=== PATIENT | female | born 1995 | race Caucasian/White ===

== ENCOUNTER 2023-07-14 09:06 | Emergency (ER) | payer BC, SELFPAY ==
[2023-07-14 09:12] VITALS: BP 112/57; PULSE 90; RESP 18; TEMP 36.2; O2SAT 100; BMI 20.9
--- NOTE | 2023-07-14 09:33 | ED.RECABL ---
HPI - Recheck/Abnormal Lab/Rx General Chief Complaint: Recheck/Abnormal Lab/Rx Stated Complaint: wants to confirm Time Seen by Provider: 07/14/23 09:33 Source: patient Mode of arrival: Ambulatory History of Present Illness HPI narrative: Patient here only for testing. Patient did test urine positive . She is now . LMP June 04, 2023. She suspected she was because she just missed her period. Patient did have some nausea. But no urinary complaints. No vomiting no diarrhea. No cough cold congestion fever chills. This was an unexpected surprise.. She is happy with the results. She took 5 tests at home and they were all positive. Related Data Home Medications Medication Instructions Recorded Confirmed [id number] 400 mcg-om3 35 mg-dha 25 tab PO 07/22/23 07/22/23 mg-epa 5 mg-fish oil chewable tablet ferrous sulfate, dried 159 mg (45 159 mg PO DAILY 07/22/23 07/22/23 mg iron) tablet,extended release (iron ER) melatonin 5 mg tablet 5 mg PO BEDTIME PRN 07/22/23 07/22/23 Allergies Allergy/AdvReac Type Severity Reaction Status Date / Time Yeast AdvReac Abdominal Verified 07/22/23 12:03 Pain vinegar AdvReac Abdominal Uncoded 07/22/23 12:03 Pain Review of Systems Review of Systems Narrative: GENERAL: negative chills, fatigue, malaise, fever, sweats. HEENT: negative sinus pain, ear pain, sore throat RESPIRATORY: negative dyspnea, cough CARDIOVASCULAR: negative chest pain, palpitations GASTROINTESTINAL: Positive nausea, negative vomiting, abdominal pain : negative dysuria, frequency, hematuria MUSCULOSKELETAL: negative muscle or bony pain SKIN: negative rash, skin lesions NEUROLOGIC: negative weakness, numbness ROS Unobtainable: All systems reviewed & are unremarkable except as noted in HPI and below Patient History Medical History (Updated 07/22/23 @ 13:12 by Alicia Gustafson RN) Migraine without aura Surgical History (Updated 07/22/23 @ 12:10 by Alicia Gustafson, LILI) History of breast augmentation (~01/2023) Family History (Updated 07/22/23 @ 12:13 by Alicia Gustafson RN) Father Hypertension Heart murmur Grandmother Diabetes mellitus Grandmother Angina at rest Grandfather Parkinsons disease Family/Other Type 1 diabetes Uncle A-fib Mother Skin cancer Social History marital status: unmarried,living together household members: significant other and children (S/O's daughter every other weekend) lives independently: Yes caregiver/support person: No housing: house pets and animals: Yes (cat & dogs, aware of precautions) education level: college (some college) occupational status: employed current occupational exposures/hazards: No special hardeep needs: No travel history: recent (domestic only) seatbelt use: always helmet use: Yes water heater temp set < 120 deg: Yes working smoke detector in home: Yes fire extinguisher in home: Yes carbon monox detector in home: Yes firearms in home: Yes firearms unloaded and locked: Yes do you feel safe at home: Yes Smoking Status: Former smoker (quit vaping when she learned she was , likewise w/ MJ) second hand exposure: No (s/o chews) alcohol intake: former (0-2/week when not ) substance use type: marijuana (agrees not to use while /) during the past year weight has: remained stable well-balanced diet: rarely or never daily servings fruits/ve-4 (1-2) caffeine: Yes (1 cup coffee or tea in AM) Type(s) of exercise: walking and weight lifting Smoking Status: Never smoker alcohol intake frequency: 0-2 drinks per day Substance Use Type: does not use Exam Narrative Exam Narrative: GENERAL: in no distress, not toxic not dyspneic HEAD: Normocephalic. EYES: Pupils equal round ENT: Mucous membranes moist. NECK: Trachea midline. CARDIOVASCULAR: Regular rate and rhythm RESPIRATORY: Clear to auscultation. Breath sounds equal bilaterally. No wheezes, rales, or rhonchi. GASTROINTESTINAL: Abdomen soft, non-tender EXTREMITIES: No gross deformities. BACK: No flank tenderness. NEURO: AOx4. SKIN: Warm and dry PSYCH: Not anxious, is cooperative Initial Vital Signs Initial Vital Signs: Vital Signs Temperature 97.2 F L 07/14/23 09:12 Pulse Rate 90 07/14/23 09:12 Respiratory Rate 18 07/14/23 09:12 Blood Pressure 112/57 L 07/14/23 09:12 Pulse Oximetry 100 07/14/23 09:12 Oxygen Delivery Method Room Air 07/14/23 09:12 Course Orders Ordered: ED Orders 07/14/23 09:18 Test Urine Stat Vital Signs Vital signs: Vital Signs - 8 hr 07/14/23 09:12 Temperature 97.2 F L Pulse Rate 90 Respiratory Rate 18 Blood Pressure 112/57 L Pulse Oximetry 100 Oxygen Delivery Method Room Air MDM - Recheck/Abnormal Lab/Rx Lab Data Labs: Point of Care Testing Test Results Positive MDM Narrative Medical decision making narrative: Patient here only for testing. Patient did test urine positive . She is now . LMP June 04, 2023. She suspected she was because she just missed her period. Patient did have some nausea. But no urinary complaints. No vomiting no diarrhea. No cough cold congestion fever chills. This was an unexpected surprise.. She is happy with the results. She took 5 tests at home and they were all positive. After history and exam urine test MDM CC: Here for test Complicating co-morbidities: She missed her last period Data collected from: Patient Differential considered: Includes but not limited to Exam documented above, pertinent findings include: Nontender abdomen Lab Test results independently reviewed as above. Pertinent findings: Urine positive Re-evaluations: Reviewed results with patient. She is very elated that she is . She states her boyfriend will be very happy. She is already on vitamins. She suspected she was . Denies abdominal pain vaginal bleeding or leak. No urinary complaints. No imaging or blood work indicated. She agrees. Discussion: Reviewed results with patient. She is happy that she is . No other laboratory studies imaging indicated. She is only here for test. No other complaints. Diagnosis: Positive Discharge Plan Departure Patient Disposition: Home Clinical Impression: Encounter for test, result positive Instructions: Exams, Tests, and Procedures, Screenings Activity Restrictions/Additional Instructions: Congratulations your test is positive! Please call provided OBGYN office on Saturday as tomorrow is a holiday, to attain and start care. Please do continue your vitamins. Keep well hydrated. Return if worse if any questions or concerns. Prescriptions: No Action [id number] oil 400 mcg-35 mg -25 mg-5 mg tablet,chewable PO melatonin 5 mg tablet 5 mg PO BEDTIME PRN iron 159 mg (45 mg iron) tablet extended release 159 mg PO DAILY Referrals: Bala James MD [Physician] - Stand Alone Forms: Patient Portal/API
== END 2023-07-14 09:40 | disposition home or self-care (01) ==
PROVIDERS: Emergency Provider Emergency Medicine
DX: Z32.01 Encounter for pregnancy test, result positive (principal)
CPT/HCPCS: 81025; 99281; 99282

== ENCOUNTER → 2023-08-02 07:45 | Outpatient (CLI) | payer OTHER, SELFPAY ==
--- NOTE | 2023-08-02 07:46 | DI.US.S_ITS ---
PROCEDURE: US OB <= 14 WEEKS FETUS INDICATIONS: DATING OUTSIDE/PRIOR DATING DATA: Last menstrual period (LMP): 06/04/2023. LMP-based estimated date of delivery (JAKE): 03/10/2024. First dating scan (date and location): 08/02/2023. Estimated date of delivery (JAKE) from first dating scan: 03/21/2024. The calculations are made using the working JAKE of 03/21/2024. TECHNIQUE: Real-time scanning was performed of the fetus and maternal pelvic organs, with image documentation. Endovaginal scanning was also performed to better visualize the fetus and maternal ovaries. COMPARISON: None. FINDINGS: Embryo: [place]-rump length measures 9 cm, corresponding with 6 week 6 day gestation. Yolk sac is noted. EGA by dates 8 week 3 day Heart rate: 119 beats per minute Maternal organs: Ovaries left ovarian corpus luteum cyst. IMPRESSION: Single live intrauterine corresponds with 6 week 6 day gestation by ultrasound. EGA by dates 8 week 3 day. Approved by: Randal Sebastian M.D. on 08/02/2023 at 15:13
== END ==
LOC: US 07:46
PROVIDERS: PCP Family Medicine; Referring Provider Family Medicine; Visit Provider Family Medicine
DX: Z34.01 Encounter for supervision of normal first pregnancy, first trimester (principal); Z3A.01 Less than 8 weeks gestation of pregnancy
CPT/HCPCS: 76801; 76817

== ENCOUNTER → 2023-08-19 08:50 | Outpatient (CLI) | payer OTHER, SELFPAY ==
[2023-08-19 09:54] LABS: Appearance Urine UA SL CLOUDY; Bilirubin Urine UA NEGATIVE (NEGATIVE); Color Urine UA YELLOW; Glucose Urine UA NEGATIVE (Negative); Ketones Urine UA NEGATIVE (NEGATIVE); Leukocyte Esterase Urine UA NEGATIVE (NEGATIVE); Nitrite Urine UA NEGATIVE (Negative); Occult Blood Urine UA NEGATIVE (Negative); Protein Urine UA NEGATIVE (Negative); Specific Gravity Urine UA 1.015 (1.000-1.035); Urobilinogen Urine UA 0.2 E.U./dL (0.2)
[2023-08-19 09:56] LABS: pH Urine UA 7.5 (4.5-8.0)
[2023-08-19 09:57] LABS: Add Manual Diff / Slide Review NO; Basophils Absolute Auto 0 /uL (0-100); Basophils Percent Auto 0.9 % (0-2); Eosinophils Absolute Auto 100 /uL (0-450); Hemoglobin 13.1 g/dL (12.0-16.0); Lymphocytes Absolute Auto 1800 /uL (1100-4500); Lymphocytes Percent Auto 30.3 % (25-40); Mean Corpuscular HGB Conc 34.6 % (30-36); Mean Corpuscular Hemoglobin 31.5 PG (26-34); Mean Corpuscular Volume 90.9 fL (80-100); Monocytes Absolute Auto 500 /uL (0-900); Monocytes Percent Auto 9.3 % (3-14); Neutrophils Absolute Auto 3400 /uL (1500-7000); Neutrophils Percent Auto 58.5 % (50-75); Platelet Count 252 X10^3/uL (150-400); Red Blood Cell Count 4.18 X10^6/uL (4.0-5.2); Red Cell Distribution Width 13.1 % (11.6-14.8); White Blood Cell Count 5.8 X10^3/uL (4.5-11.0)
[2023-08-19 16:21] LABS: Hepatitis B Surface Antigen NEGATIVE s/c (NEGATIVE); Rubella Antibody IgG 40.2 IU/mL (>15)
[2023-08-19 16:33] LABS: HIV 1 & 2 Ab/Ag 4th Gen Combo NEGATIVE (NEGATIVE); Hep C Virus Ab w/Reflex Quant NEGATIVE s/c (NEGATIVE)
[2023-08-20 09:28] LABS: RPR Screen Non Reactive (Non Reactive)
[2023-08-20 12:48] LABS: Varicella IgG Antibody 2554 index (Immune >165)
== END ==
PROVIDERS: PCP Family Medicine; Referring Provider Family Medicine; Visit Provider Family Medicine
DX: Z34.00 Encounter for supervision of normal first pregnancy, unspecified trimester (principal)
CPT/HCPCS: 36415; 80055; 81003; 86787; 86803; 86850; 86900; 86901; 87086; 87389

== ENCOUNTER → 2023-09-06 10:03 | Outpatient (CLI) | payer OTHER, SELFPAY ==
[2023-09-06 13:31] LABS: Urine Chlamydia NOT DETECTED; Urine N gonorrhoeae NOT DETECTED
== END ==
PROVIDERS: PCP Family Medicine; Referring Provider Family Medicine; Visit Provider Family Medicine
DX: Z34.01 Encounter for supervision of normal first pregnancy, first trimester (principal)
CPT/HCPCS: 36415; 87491; 87591

== ENCOUNTER 2023-09-18 11:43 | Emergency (ER) | payer OTHER, MEDICAID, SELFPAY ==
[2023-09-18] VITALS (7 sets, daily range): BP systolic 100–125; BP diastolic 55–68; PULSE 62–90; RESP 18–28; TEMP 36.9; O2SAT 97–100; BMI 24.1
[2023-09-18 13:14] LABS: Adenovirus Not Detected (Not Detect); B. parapertussis Not Detected (Not Detecte); Bordetella pertussis Not Detected (Not Detect); Chlamydophila pneumoniae Not Detected (Not Detect); Coronavirus 229E Not Detected (Not Detect); Coronavirus HKU1 Not Detected (Not Detect); Coronavirus NL 63 Not Detected (Not Detect); Coronavirus OC43 Not Detected (Not Detect); Human Metapneumovirus Not Detected (Not Detect); Human Rhinovirus/Enterovirus Not Detected (Not Detect); Influenza A Not Detected (Not Detect); Influenza B Not Detected (Not Detect); Mycoplasma pneumoniae Not Detected (Not Detect); Parainfluenza Virus 1 Not Detected (Not Detect); Parainfluenza Virus 2 Not Detected (Not Detect); Parainfluenza Virus 3 Not Detected (Not Detect); Parainfluenza Virus 4 Not Detected (Not Detect); Respiratory Syncytial Virus Not Detected (Not Detect); SARS- CoV-2 Not Detected (Not Detecte)
[2023-09-18] MEDS: ACETAMINOPHEN 325 MG TABLET 650 MG PO (13:18)
[2023-09-18] MEDS: SODIUM CHLORIDE 0.9% 1,000 ML 1000 ML IV (13:19)
[2023-09-18 13:21] LABS: Add Manual Diff / Slide Review NO; Basophils Absolute Auto 0 /uL (0-100); Basophils Percent Auto 0.4 % (0-2); Eosinophils Absolute Auto 0 /uL (0-450); Eosinophils Percent Auto 0.3 % (2-4); Hematocrit 36.7 % (36-46); Hemoglobin 12.9 g/dL (12.0-16.0); Lymphocytes Absolute Auto 1000 /uL (1100-4500); Lymphocytes Percent Auto 11.4 % (25-40); Mean Corpuscular HGB Conc 35.1 % (30-36); Mean Corpuscular Hemoglobin 32.4 PG (26-34); Mean Corpuscular Volume 92.4 fL (80-100); Monocytes Absolute Auto 600 /uL (0-900); Monocytes Percent Auto 6.8 % (3-14); Neutrophils Absolute Auto 7400 /uL (1500-7000); Neutrophils Percent Auto 81.1 % (50-75); Platelet Count 251 X10^3/uL (150-400); Red Blood Cell Count 3.98 X10^6/uL (4.0-5.2); Red Cell Distribution Width 12.8 % (11.6-14.8); White Blood Cell Count 9.1 X10^3/uL (4.5-11.0)
--- NOTE | 2023-09-18 13:30 | ED.DIZZY ---
HPI - Dizziness General Chief Complaint: Dizziness Stated Complaint: loss vision, sweats, sent by pcp Time Seen by Provider: 09/18/23 12:46 Source: patient Mode of arrival: Ambulatory History of Present Illness HPI Narrative: Patient here with boyfriend. Patient is 13 weeks . Patient is , has history of migraine headaches and SVT. Patient states she had episode at the [facility] this morning standing in line, prior to arrival to the [facility] she did have a cake pop. While in line she felt dizzy nauseous palpitations and sweaty. She states for brief moment less than 1 minute she could not see, workers placed her in a chair gave her orange juice and her symptoms resolved. Her father picked her up and she did have slight headache. She is feeling much better now. Patient has established OB care already. Denies any pelvic pain vaginal bleeding or vaginal discharge. Patient in no distress at this time. No history of diabetes or hypoglycemia Related Data Home Medications Medication Instructions Recorded Confirmed ferrous sulfate, dried 159 mg (45 159 mg PO DAILY 07/22/23 09/16/23 mg iron) tablet,extended release (iron ER) melatonin 5 mg tablet 5 mg PO BEDTIME PRN 07/22/23 09/16/23 Previous Rx's Medication Instructions Recorded ondansetron 4 mg disintegrating 4 mg PO Q8H PRN nausea and 08/19/23 tablet vomiting #30 tabs pyridoxine (vitamin B6) 50 mg 25 mg (1/2 x 50 mg) PO BID #30 tabs 09/02/23 tablet escitalopram oxalate 10 mg tablet 10 mg PO DAILY #30 tabs 09/16/23 (Lexapro) magnesium oxide 400 mg (241.3 mg 400 mg PO DAILY #60 tabs 09/16/23 magnesium) tablet Allergies Allergy/AdvReac Type Severity Reaction Status Date / Time Yeast AdvReac Abdominal Verified 09/16/23 08:06 Pain vinegar AdvReac Abdominal Uncoded 09/16/23 08:06 Pain Review of Systems Review of Systems Narrative: GENERAL: negative chills, fatigue, malaise, fever, positive sweats. HEENT: negative sinus pain, ear pain, sore throat positive vision changes RESPIRATORY: negative dyspnea, cough CARDIOVASCULAR: negative chest pain, positive palpitations GASTROINTESTINAL: Positive nausea, negative vomiting, abdominal pain : negative dysuria, frequency, hematuria MUSCULOSKELETAL: negative muscle or bony pain SKIN: negative rash, skin lesions NEUROLOGIC: negative weakness, numbness, positive dizziness ROS Unobtainable: All systems reviewed & are unremarkable except as noted in HPI and below Patient History Medical History Allergies Headache Fractures (~1999) Frequent UTI (~2010) Cardiac arrhythmia (~2012) Cardiac murmur (~2012) SVT (supraventricular tachycardia) (~2013) Migraine without aura Surgical History Anesthesia History of breast augmentation (~01/2023) Family History Father Hypertension Heart murmur Grandmother Diabetes mellitus Stroke Grandmother Angina at rest Grandfather Parkinsons disease Family/Other Type 1 diabetes Uncle A-fib Mother Skin cancer Social History marital status: unmarried,living together household members: significant other and children (S/O's daughter every other weekend) lives independently: Yes caregiver/support person: No housing: house pets and animals: Yes (cat & dogs, aware of precautions) education level: college (some college) occupational status: employed current occupational exposures/hazards: No special hardeep needs: No travel history: recent (domestic only) seatbelt use: always helmet use: Yes water heater temp set < 120 deg: Yes working smoke detector in home: Yes fire extinguisher in home: Yes carbon monox detector in home: Yes firearms in home: Yes firearms unloaded and locked: Yes do you feel safe at home: Yes Smoking Status: Current every day smoker second hand exposure: No (s/o chews) alcohol intake: former (0-2/week when not ) substance use type: marijuana (agrees not to use while /) during the past year weight has: remained stable well-balanced diet: rarely or never daily servings fruits/ve-4 (1-2) caffeine: Yes (1 cup coffee or tea in AM) Type(s) of exercise: walking and weight lifting Smoking Status: Current every day smoker tobacco type: vaping alcohol intake frequency: 0-2 drinks per day Substance Use Type: does not use Exam Narrative Exam Narrative: GENERAL: in no distress, not toxic not dyspneic HEAD: Normocephalic. EYES: Pupils equal round ENT: Mucous membranes moist. NECK: Trachea midline. CARDIOVASCULAR: Regular rate and rhythm RESPIRATORY: Clear to auscultation. Breath sounds equal bilaterally. No wheezes, rales, or rhonchi. GASTROINTESTINAL: Abdomen soft, non-tender EXTREMITIES: No gross deformities. BACK: No flank tenderness. NEURO: AOx4. Clear speech no facial droop light touch intact to bilateral face and hands. Strong equal landscape artist. SKIN: Warm and dry PSYCH: Not anxious, is cooperative Initial Vital Signs Initial Vital Signs: Vital Signs Temperature 98.5 F 09/18/23 11:50 Pulse Rate 73 09/18/23 11:50 Respiratory Rate 18 09/18/23 11:50 Blood Pressure 125/68 09/18/23 11:50 Pulse Oximetry 100 09/18/23 11:50 Oxygen Delivery Method Room Air 09/18/23 11:50 Course Orders Ordered: ED Orders 09/18/23 12:20 Respiratory Panel (Film Array) Stat 09/18/23 12:29 EKG-12 Lead Stat 09/18/23 13:10 Complete Blood Count AUTO DIFF Stat Comprehensive Metabolic Panel Stat Discontinued Medications Acetaminophen (Acetaminophen 325 Mg Tablet) 650 mg PO NOW ONE Stop: 09/18/23 13:02 Last Admin: 09/18/23 13:18 Dose: 650 mg Documented By: ART Sodium Chloride (Normal Saline 0.9%) 1,000 mls @ 1,000 mls/hr IV BOLUS ONE Stop: 09/18/23 13:59 Last Infusion: 09/18/23 13:49 Dose: Infused Documented By: Admin: 09/18/23 13:19 Dose: 1,000 mls/hr Documented By: ART Ondansetron HCl (Ondansetron 4 Mg/2 Ml Inj) 4 mg IV NOW PRN PRN Reason: Nausea And Vomiting Ondansetron HCl (Ondansetron 4 Mg Odt) 4 mg SL NOW PRN PRN Reason: Nausea And Vomiting Vital Signs Vital signs: Vital Signs - 8 hr 09/18/23 11:50 09/18/23 12:19 09/18/23 12:19 Temperature 98.5 F Pulse Rate 73 90 Respiratory Rate 18 Blood Pressure 125/68 106/60 Pulse Oximetry 100 97 Oxygen Delivery Method Room Air 09/18/23 12:30 09/18/23 12:30 09/18/23 13:01 Temperature Pulse Rate 67 Respiratory Rate 28 H Blood Pressure 102/64 122/66 Pulse Oximetry 100 Oxygen Delivery Method 09/18/23 13:01 09/18/23 13:30 09/18/23 13:30 Temperature Pulse Rate 67 62 Respiratory Rate 19 Blood Pressure 100/55 L Pulse Oximetry 100 100 Oxygen Delivery Method 09/18/23 14:56 09/18/23 14:57 09/18/23 14:57 Temperature Pulse Rate 63 65 Respiratory Rate Blood Pressure 102/65 Pulse Oximetry 99 99 Oxygen Delivery Method MDM - Dizziness Lab Data 09/18/23 13:10 09/18/23 13:10 Labs: Lab Results 09/18/23 09/18/23 Range/Units 12:20 13:10 WBC 9.1 (4.5-11.0) X10^3/uL RBC 3.98 L (4.0-5.2) X10^6/uL Hgb 12.9 (12.0-16.0) g/dL Hct 36.7 (36-46) % MCV 92.4 (80-100) fL MCH 32.4 (26-34) PG MCHC 35.1 (30-36) % RDW 12.8 (11.6-14.8) % Plt Count 251 (150-400) X10^3/uL Neut % (Auto) 81.1 H (50-75) % Lymph % (Auto) 11.4 L (25-40) % Treasure % (Auto) 6.8 (3-14) % Eos % (Auto) 0.3 L (2-4) % Baso % (Auto) 0.4 (0-2) % Neut # (Auto) 7400 H (0183-4950) /uL Lymph # (Auto) 1000 L (8302-3754) /uL Treasure # (Auto) 600 (0-900) /uL Eos # (Auto) 0 (0-450) /uL Baso # (Auto) 0 (0-100) /uL Sodium 134 L (137-145) mmol/L Potassium 4.6 (3.4-5.1) mmol/L Chloride 105 (98-107) mmol/L Carbon Dioxide 22 (22-32) mmol/L BUN 11 (7-17) mg/dL Creatinine 0.47 L (0.52-1.04) mg/dL Estimated GFR > 60 (>60) mL/min BUN/Creatinine Ratio 23.4 H (6-22) Glucose 64 L (70-100) mg/dL Calcium 9.4 (8.4-10.2) mg/dL Total Bilirubin 0.4 (0.2-1.3) mg/dL AST 36 (14-36) IU/L ALT 49 H (<35) IU/L Alkaline Phosphatase 61 (38-126) U/L Total Protein 7.7 (6.3-8.2) g/dL Albumin 4.4 (3.5-5.0) g/dL Globulin 3.3 (1.7-4.1) g/dL Albumin/Globulin Ratio 1.3 (1.0-2.8) Chlamy pneumoniae PCR Not detected (Not Detect) Adenovirus (PCR) Not detected (Not Detect) B.parapertussis DNA PCR Not detected (Not Detecte) Coronavirus OC43 (PCR) Not detected (Not Detect) Coronavirus HKU1 (PCR) Not detected (Not Detect) Coronavirus 229E (PCR) Not detected (Not Detect) SARS-CoV-2 (PCR) Not detected (Not Detecte) Coronavirus NL63 (PCR) Not detected (Not Detect) Human Metapneumovir PCR Not detected (Not Detect) Influenza Type A (PCR) Not detected (Not Detect) Influenza Type B (PCR) Not detected (Not Detect) M. pneumoniae (PCR) Not detected (Not Detect) Parainfluenza 1 (PCR) Not detected (Not Detect) Parainfluenza 2 (PCR) Not detected (Not Detect) Parainfluenza 3 (PCR) Not detected (Not Detect) Parainfluenza 4 (PCR) Not detected (Not Detect) RSV (PCR) Not detected (Not Detect) Entero/Rhino (PCR) Not detected (Not Detect) Urine Dip Bedside Urine Glucose Negative Bedside Urine Bilirubin - Negative Bedside Urine Ketone - Negative Urine Specific Ethel 1.020 Bedside Urine Occult Blood - Negative Bedside Urine pH 7.0 Bedside Urine Protein +/- 15 Bedside Urine Urobilinogen - Negative Bedside Urine Nitrite - Negative Bedside Urine Leukocytes - Negative Esterase MDM Narrative Medical decision making narrative: Patient here with boyfriend. Patient is 13 weeks . Patient is , has history of migraine headaches and SVT. Patient states she had episode at the [facility] this morning standing in line, prior to arrival to the [facility] she did have a cake pop. While in line she felt dizzy nauseous palpitations and sweaty. She states for brief moment less than 1 minute she could not see, workers placed her in a chair gave her orange juice and her symptoms resolved. Her father picked her up and she did have slight headache. She is feeling much better now. Patient has established OB care already. Denies any pelvic pain vaginal bleeding or vaginal discharge. Patient in no distress at this time. No history of diabetes or hypoglycemia After history and exam EKG CBC CMP urinalysis normal saline p.o. challenge respiratory panel MDM CC: Near-syncope Complicating co-morbidities: Patient Data collected from: Patient and boyfriend Medical records reviewed: September 16, 2023 OB office visit Differential considered: Includes but not limited to hypoglycemia, hypotension, dehydration, arrhythmia anemia Exam documented above, pertinent findings include: Abdomen soft nontender Lab Test results independently reviewed as above. Pertinent findings: WBC 9.1 hemoglobin 12.9 respiratory panel negative Glucose 64 Independently reviewed EKG normal sinus rhythm rate [address] elevation or depression Imaging studies independently reviewed: None indicated at this time Consultations: None indicated at this time Treatments: Normal saline Re-evaluations: 2:50 p.m.. Updated the patient results. Patient asymptomatic during course of stay. Review with patient likely hypoglycemic event that caused her symptoms. Despite oral intake prior to arrival her blood glucose 64 here on CMP. However she is able to eat and drink here. Reviewed with her to keep well hydrated and nutrition will change with as more demand of calories with growth of baby. Return precautions reviewed. Patient desires discharge home. Discussion: Appropriate for discharge home. Patient symptoms likely due to hypoglycemia. She rapidly improved with orange juice at the [facility]. She will keep candy bar or snacks with her to prevent from this happen again. Not toxic at discharge her return precautions reviewed. She desires discharge home. Exam and laboratory studies are reassuring. Glucose noted at 64. Patient has no biologist complaints. No indication to pursue OB workup. Diagnosis: Hypoglycemia Discharge Plan Departure Patient Disposition: Home Clinical Impression: Hypoglycemia Instructions: DI for Hypoglycemia Activity Restrictions/Additional Instructions: Your symptoms today likely due to low sugar/glucose. Please do keep snacks and candy bar on you to prevent this from happening. Be sure not to skip meals. You will require more caloric intake during her . See your biologist doctor as scheduled. Return if worse if any questions or concerns. Prescriptions: No Action ondansetron 4 mg tablet,disintegrating 4 mg PO Q8H PRN (Reason: nausea and vomiting) Qty: 30 0RF magnesium oxide 400 mg (241.3 mg magnesium) tablet 400 mg PO DAILY Qty: 60 0RF escitalopram oxalate [Lexapro] 10 mg tablet 10 mg PO DAILY Qty: 30 1RF pyridoxine (vitamin B6) 50 mg tablet 25 mg PO BID Qty: 30 0RF melatonin 5 mg tablet 5 mg PO BEDTIME PRN iron 159 mg (45 mg iron) tablet extended release 159 mg PO DAILY Referrals: Cathy Diaz MD [Primary Care Provider] - Stand Alone Forms: Patient Portal/API
[2023-09-18 13:35] LABS: Alanine Aminotransferase 49 IU/L (<35); Albumin 4.4 g/dL (3.5-5.0); Albumin Globulin Ratio 1.3 (1.0-2.8); Alkaline Phosphatase 61 U/L (38-126); Aspartate Aminotransferase 36 IU/L (14-36); BUN Creatinine Ratio 23.4 (6-22); Bilirubin Total 0.4 mg/dL (0.2-1.3); Blood Urea Nitrogen 11 mg/dL (7-17); Calcium 9.4 mg/dL (8.4-10.2); Carbon Dioxide 22 mmol/L (22-32); Chloride 105 mmol/L (98-107); Estimated Glomerular Filt Rate > 60 mL/min (>60); Globulin 3.3 g/dL (1.7-4.1); Glucose 64 mg/dL (70-100); HEMOLYSIS < 15 (0-50); Potassium 4.6 mmol/L (3.4-5.1); Sodium 134 mmol/L (137-145); Total Protein 7.7 g/dL (6.3-8.2)
== END 2023-09-18 15:12 | disposition home or self-care (01) ==
PROVIDERS: Emergency Provider Emergency Medicine; PCP Family Medicine
DX: O26.891 Other specified pregnancy related conditions, first trimester (principal); E16.2 Hypoglycemia, unspecified; R55 Syncope and collapse; Z3A.13 13 weeks gestation of pregnancy
CPT/HCPCS: 36415; 80053; 81003; 85025; 87633; 93005; 93010; 99283; 99284

== ENCOUNTER → 2023-11-01 10:20 | Outpatient (CLI) | payer OTHER, MEDICAID, SELFPAY ==
--- NOTE | 2023-11-01 10:21 | DI.US.S_ITS ---
PROCEDURE: US OB >= 14 WEEKS FETUS INDICATIONS: Eval and treatment OUTSIDE/PRIOR DATING DATA: Last menstrual period (LMP): 06/04/2023 LMP-based estimated date of delivery (JAKE): 03/10/2024 First dating scan (date and location): 08/02/2023 Estimated date of delivery (JAKE) from first dating scan: 03/21/2024. The calculations are made using the study generated JAKE of 03/21/2024. TECHNIQUE: Real-time scanning was performed of the fetus, with image documentation and biometric measurements. Endovaginal scanning: Not performed COMPARISON: None. FINDINGS: General: A single living intrauterine gestation is present. Presentation: Transverse with head towards maternal right side. Placenta: Placental position is anterior, without previa. Amniotic fluid index: 14.5 cm, normal range is 5-24 cm. Single deepest vertical pocket is 4.8 cm. heart rate: 131 beats per minute. Maternal cervical canal: 3.6 cm long. Normal lower limit is 2.5 cm. biometrics: Biparietal diameter: 4.9 cm, 20 weeks, 6 days Head circumference: 17.9 cm, 20 weeks, 6 days Abdominal circumference: 15.8 cm, 20 weeks, 6 days Femur length: 3.2 cm, 20 weeks, 0 day. Clinically estimated gestational age: 19 weeks, 6 days Composite gestational age from present scan: 20 weeks, 4 days Estimated weight and percentile: 359 grams, 82 percent. Anatomic survey: Neuro: Ventricles are non-dilated at less than 10 mm. Cisterna magna is normal at 3-11 mm. Cerebellum is normal in size and morphology. Nuchal skin fold: Normal at less than 6 mm between 14-21 weeks gestational age. Face: Nose and lips, facial profile are normal. Spine: No evidence for spina bifida. Heart: 4-chambered heart is present, with normal ventricular outflow tracts. Diaphragm: Diaphragm is intact. Stomach: Left-sided stomach is present. Kidneys: No hydronephrosis. Normal is less than 5 mm in 2nd trimester, less than 7 mm in 3rd trimester. Cord: 3-vessel cord has orthotopic insertion. Bladder: Normal in size. Extremities: All 4 extremities identified. IMPRESSION: 1. Single live intrauterine gestation with fetus in transverse presentation. heart rate is 131 beats per minute. Normal [place] at 14.5 cm. 2. Normal growth. Estimated weight is at 82 percent. 3. Normal anatomic survey. We strive to produce accurate, complete, and clear reports of imaging services. To assist us in improving patient care, this report was composed using standard report templates and voice recognition software. Therefore, it may contain abnormal punctuation, insertions and/or omissions. Occasional wrong-word or sound-alike substitutions may occur. Though we review the report and make efforts to correct it, we do recommend that the report be read carefully in proper context to recognize any text inaccuracies. Dictated by: Cleveland Castillo M.D. on 11/01/2023 at 15:28 Approved by: Cleveland Castillo M.D. on 11/01/2023 at 15:31
== END ==
LOC: US 10:20
PROVIDERS: PCP Family Medicine; Referring Provider Family Medicine; Visit Provider Family Medicine
DX: Z34.02 Encounter for supervision of normal first pregnancy, second trimester (principal); Z3A.20 20 weeks gestation of pregnancy
CPT/HCPCS: 76811

== ENCOUNTER → 2023-12-13 08:32 | Outpatient (CLI) | payer OTHER, MEDICAID, SELFPAY | PROVIDERS: PCP Family Medicine; Visit Provider Family Medicine | DX: Z34.00 Encounter for supervision of normal first pregnancy, unspecified trimester (principal); N39.0 Urinary tract infection, site not specified | CPT/HCPCS: 87210; 87491; 87563; 87591 ==

== ENCOUNTER 2024-01-01 10:35 | Outpatient (CLI) | payer OTHER, MEDICAID, SELFPAY ==
[2024-01-01] MEDS: ONDANSETRON 4 MG ODT SL (11:17)
--- NOTE | 2024-01-01 11:17 | PM.OBTRLD ---
Visit Information Visit Information Date of evaluation: 01/01/24 Primary OB Provider: Cathy Diaz On-call OB Provider: Shy Smith Comments/Additional reasons for admission: 28yo at 28w4d gestation here due to vomiting and diarrhea. Pt reports symptoms began earlier this morning. She has not been able to keep fluids down. Her stools are very liquidy. She denies any blood in her emesis or stool. She denies any LOF, vaginal bleeding, contractions. She is feeling her baby move regularly. [facility]LY [facility] Medical History Allergies Headache Fractures (~1999) Frequent UTI (~2010) Cardiac arrhythmia (~2012) Cardiac murmur (~2012) SVT (supraventricular tachycardia) (~2013) Migraine without aura Surgical History Anesthesia History of breast augmentation (~01/2023) Family History Father Hypertension Heart murmur Grandmother Diabetes mellitus Stroke Grandmother Angina at rest Grandfather Parkinsons disease Family/Other Type 1 diabetes Uncle A-fib Mother Skin cancer Social History marital status: unmarried,living together household members: significant other and children (S/O's daughter every other weekend) lives independently: Yes caregiver/support person: No housing: house pets and animals: Yes (cat & dogs, aware of precautions) education level: college (some college) occupational status: employed current occupational exposures/hazards: No special hardeep needs: No travel history: recent (domestic only) seatbelt use: always helmet use: Yes water heater temp set < 120 deg: Yes working smoke detector in home: Yes fire extinguisher in home: Yes carbon monox detector in home: Yes firearms in home: Yes firearms unloaded and locked: Yes do you feel safe at home: Yes Smoking Status: Current every day smoker second hand exposure: No (s/o chews) alcohol intake: former (0-2/week when not ) substance use type: marijuana (agrees not to use while /) during the past year weight has: remained stable well-balanced diet: rarely or never daily servings fruits/ve-4 (1-2) caffeine: Yes (1 cup coffee or tea in AM) Type(s) of exercise: walking and weight lifting Evaluation Evaluation Baseline heart rate: 130 Variability: Moderate (11-25) monitor accelerations: Present Monitor Decelerations: Absent Category of Tracing: Reactive Diagnosis, Plan/Disposition Final Diagnosis (1) Nausea vomiting and diarrhea: Status: Acute (2) 28 weeks gestation of : Status: Acute Plan/Disposition Plan: 28yo at 28w4d gestation here due to vomiting and diarrhea. Given 4mg of Zofran. NST reactive without contractions. Pt needs IVF, basic labs ordered. Due to staffing in L&D currently, this cannot be completed here. Transferred to the ED for additional care. No concerns for at this time. OB Disposition: other (transfer to ED)
== END 2024-01-01 11:25 | disposition home or self-care (01) ==
LOC: LABOR 10:54 → OB 01-02 11:56
PROVIDERS: PCP Family Medicine; Referring Provider Obstetrics & Gynecology; Visit Provider Obstetrics & Gynecology
DX: O26.893 Other specified pregnancy related conditions, third trimester (principal); Z3A.28 28 weeks gestation of pregnancy; R11.2 Nausea with vomiting, unspecified; R19.7 Diarrhea, unspecified
CPT/HCPCS: 36415; 59025; 80053; 81001; 85025; 99283; 99284; G0378; G0379

== ENCOUNTER 2024-01-01 11:22 | Emergency (ER) | payer OTHER, MEDICAID, SELFPAY ==
[2024-01-01 11:23] VITALS: BP 101/60; PULSE 77; RESP 15; TEMP 37; O2SAT 98; BMI 31.5
--- NOTE | 2024-01-01 11:28 | ED.GENADULT ---
HPI - General Adult General Chief complaint: Dizziness Stated complaint: Throwing up, Dizzy, 28 weeks Time Seen by Provider: 01/01/24 11:28 History of Present Illness HPI narrative: 28-year-old current at 28 weeks referred from OB floor for further evaluation and treatment of nausea vomiting and diarrhea. She has care by Dr. Botello, next care visit scheduled this Saturday. No recent vaginal bleeding, no gush of fluid, some abdominal cramping. Nausea with nonbloody emesis for 2 episodes earlier today, also loose stools without black or red color 2 episodes earlier today. She felt dizzy, was evaluated initially by OB floor, low glucose reported, given oral ondansetron, and then juice, feels better. No recent exposure to antibiotics. No fevers or chills. Denies cough chest pain or shortness of breath. She denies pain with urination or frequency of urination. Related Data Home Medications Medication Instructions Recorded Confirmed ferrous sulfate, dried 159 mg (45 159 mg PO DAILY 07/22/23 11/15/23 mg iron) tablet,extended release (iron ER) melatonin 5 mg tablet 5 mg PO BEDTIME PRN 07/22/23 11/15/23 Previous Rx's Medication Instructions Recorded ondansetron 4 mg disintegrating 4 mg PO Q8H PRN nausea and 08/19/23 tablet vomiting #30 tabs pyridoxine (vitamin B6) 50 mg 25 mg (1/2 x 50 mg) PO BID #30 tabs 09/02/23 tablet magnesium oxide 400 mg (241.3 mg 400 mg PO DAILY #60 tabs 09/16/23 magnesium) tablet glucose monitor #1 ea 09/24/23 glucose test strips #100 ea 09/24/23 lancets #100 ea 09/24/23 albuterol sulfate 90 mcg/actuation 2 inh inhalation Q4-6H PRN 11/29/23 aerosol inhaler shortness of breath or wheezing #8.5 grams escitalopram oxalate 10 mg tablet 10 mg PO DAILY #30 tabs 12/11/23 Allergies Allergy/AdvReac Type Severity Reaction Status Date / Time Yeast AdvReac Abdominal Verified 01/01/24 11:32 Pain vinegar AdvReac Abdominal Uncoded 12/13/23 07:56 Pain Review of Systems Review of Systems Narrative: as per HPI Patient History Medical History Allergies Headache Fractures (~1999) Frequent UTI (~2010) Cardiac arrhythmia (~2012) Cardiac murmur (~2012) SVT (supraventricular tachycardia) (~2013) Migraine without aura Surgical History Anesthesia History of breast augmentation (~01/2023) Family History Father Hypertension Heart murmur Grandmother Diabetes mellitus Stroke Grandmother Angina at rest Grandfather Parkinsons disease Family/Other Type 1 diabetes Uncle A-fib Mother Skin cancer Social History marital status: unmarried,living together household members: significant other and children (S/O's daughter every other weekend) lives independently: Yes caregiver/support person: No housing: house pets and animals: Yes (cat & dogs, aware of precautions) education level: college (some college) occupational status: employed current occupational exposures/hazards: No special hardeep needs: No travel history: recent (domestic only) seatbelt use: always helmet use: Yes water heater temp set < 120 deg: Yes working smoke detector in home: Yes fire extinguisher in home: Yes carbon monox detector in home: Yes firearms in home: Yes firearms unloaded and locked: Yes do you feel safe at home: Yes Smoking Status: Current every day smoker second hand exposure: No (s/o chews) alcohol intake: former (0-2/week when not ) substance use type: marijuana (agrees not to use while /) during the past year weight has: remained stable well-balanced diet: rarely or never daily servings fruits/ve-4 (1-2) caffeine: Yes (1 cup coffee or tea in AM) Type(s) of exercise: walking and weight lifting Smoking Status: Current every day smoker tobacco type: vaping alcohol intake frequency: 0-2 drinks per day Substance Use Type: does not use Exam Narrative Exam Narrative: GENERAL: Well-developed patient, in mild distress. HEAD: Atraumatic. Normocephalic. EYES: Pupils equal round and reactive. Extraocular motions intact. No scleral icterus. No injection or drainage. ENT: Nose without bleeding, purulent drainage. Throat without erythema, tonsillar hypertrophy or exudate. Airway patent. NECK: Trachea midline. Non tender CARDIOVASCULAR: Regular rate and rhythm without murmurs, gallops, or rubs. RESPIRATORY: Clear to auscultation. Breath sounds equal bilaterally. No wheezes, rales, or rhonchi. GASTROINTESTINAL: Gravid abdomen, fundal height four fingers above umbilicus, abdomen soft, non-tender. EXTREMITIES: No edema or joint tenderness. BACK: Nontender without deformity or crepitance. No flank tenderness. NEURO: AOx3. SKIN: No rash or erythema of visible areas Initial Vital Signs Initial Vital Signs: Vital Signs Temperature 98.6 F 01/01/24 11:23 Pulse Rate 77 01/01/24 11:23 Respiratory Rate 15 01/01/24 11:23 Blood Pressure 101/60 01/01/24 11:23 Pulse Oximetry 98 01/01/24 11:23 Oxygen Delivery Method Room Air 01/01/24 11:23 Course Orders Ordered: ED Orders 01/01/24 11:46 Ictotest Urine Stat Urinalysis and Microscopic Stat 01/01/24 11:53 CBC Auto Diff [Complete Blood Count AUTO DIFF] Stat CMP [Comprehensive Metabolic Panel] Stat Discontinued Medications Sodium Chloride (Normal Saline 0.9%) 1,000 mls @ 1,000 mls/hr IV BOLUS ONE Stop: 01/01/24 12:30 Last Infusion: 01/01/24 12:39 Dose: Infused Documented By: Admin: 01/01/24 11:54 Dose: 1,000 mls/hr Documented By: GABI Vital Signs Vital signs: Vital Signs - 8 hr 01/01/24 11:23 01/01/24 11:29 01/01/24 11:29 Temperature 98.6 F Pulse Rate 77 77 Respiratory Rate 15 Blood Pressure 101/60 101/60 Pulse Oximetry 98 98 Oxygen Delivery Method Room Air 01/01/24 11:30 01/01/24 13:46 Temperature Pulse Rate 71 66 Respiratory Rate Blood Pressure 107/67 Pulse Oximetry 99 100 Oxygen Delivery Method Room Air Room Air Medical Decision Making Lab Data 01/01/24 11:53 01/01/24 11:53 Labs: Lab Results 01/01/24 01/01/24 Range/Units 11:46 11:53 WBC 13.2 H (4.5-11.0) X10^3/uL RBC 3.70 L (4.0-5.2) X10^6/uL Hgb 11.8 L (12.0-16.0) g/dL Hct 35.2 L (36-46) % MCV 94.9 (80-100) fL MCH 31.8 (26-34) PG MCHC 33.5 (30-36) % RDW 12.9 (11.6-14.8) % Plt Count 271 (150-400) X10^3/uL Neut % (Auto) 90.8 H (50-75) % Lymph % (Auto) 6.2 L (25-40) % [place] % (Auto) 2.4 L (3-14) % Eos % (Auto) 0.4 L (2-4) % Baso % (Auto) 0.2 (0-2) % Neut # (Auto) 63747 H (6741-7833) /uL Lymph # (Auto) 800 L (3969-2109) /uL [place] # (Auto) 300 (0-900) /uL Eos # (Auto) 100 (0-450) /uL Baso # (Auto) 0 (0-100) /uL Sodium 133 L (137-145) mmol/L Potassium 4.2 (3.4-5.1) mmol/L Chloride 107 (98-107) mmol/L Carbon Dioxide 23 (22-32) mmol/L BUN 15 (7-17) mg/dL Creatinine 0.56 (0.52-1.04) mg/dL Estimated GFR > 60 (>60) mL/min BUN/Creatinine Ratio 26.8 H (6-22) Glucose 91 (70-100) mg/dL Calcium 9.1 (8.4-10.2) mg/dL Total Bilirubin 0.3 (0.2-1.3) mg/dL AST 22 (14-36) IU/L ALT 19 (<35) IU/L Alkaline Phosphatase 104 (38-126) U/L Total Protein 7.0 (6.3-8.2) g/dL Albumin 3.9 (3.5-5.0) g/dL Globulin 3.1 (1.7-4.1) g/dL Albumin/Globulin Ratio 1.3 (1.0-2.8) Urine Color Yellow Urine Appearance Clear Urine pH 6.0 (4.5-8.0) Ur Specific Bailey 1.025 (1.000-1.035) Urine Protein Negative (Negative) Urine Glucose (UA) Negative (Negative) g/dL Urine Ketones Trace H (NEGATIVE) Urine Occult Blood Negative (Negative) Urine Nitrate Negative (Negative) Urine Bilirubin 1+ H (NEGATIVE) Ur Bilirubin Confirm Negative (Negative) Urine Urobilinogen 0.2 (0.2) E.U./dL Ur Leukocyte Esterase Negative (NEGATIVE) Urine RBC 0-1/hpf (0-5/HPF) Urine WBC 0-1/hpf (0-5/HPF) Ur Squamous Epith Cells 1-5 /hpf (0-5/HPF) Urine Bacteria Occasional (0-1) (None) Urine Mucus 1+ H (Negative) Ur Culture Indicated? Cult not indicated Vol Urine Centrifuged 10ml (spun) MDM Narrative Medical decision making narrative: 28yo female primigravida current 28 weeks gestation, with nausea vomiting and also nonbloody diarrhea, afebrile, SIRS screen negative, gravid abdomen, nontender, no leaking of fluid or vaginal bleeding symptoms. Given component of loose stools I would suspect gastroenteritis. IV fluid bolus. Antiemetic given on OB floor seemed to be helpful, repeat if needed, seems improved. She was able to take oral juice glucose load on OB floor. NST on OB floor reportedly reassuring. Labs pending including electrolytes and repeat glucose level. Stool GI pathogens panel requested, if any specimen is received. Discharge Plan Departure Patient Disposition: Home Clinical Impression: Nausea vomiting and diarrhea, Instructions: Nausea and Vomiting-Adult Activity Restrictions/Additional Instructions: Current with nausea vomiting and reported some diarrhea as well, no diarrhea while in the department, no specimen sent to lab for testing. You had some screening up in the Obstetrics area with reassuring strip by report, IV fluids given here, ondansetron for nausea given in OB department that seemed to be effective. Prescription for further ondansetron sent to your pharmacy to use if needed. Follow up with your obstetrics provider this Saturday as scheduled. Return to this/nearest emergency department for any change worsening symptoms or any concerns prior Prescriptions: No Action ondansetron 4 mg tablet,disintegrating 4 mg PO Q8H PRN (Reason: nausea and vomiting) Qty: 30 0RF magnesium oxide 400 mg (241.3 mg magnesium) tablet 400 mg PO DAILY Qty: 60 0RF pyridoxine (vitamin B6) 50 mg tablet 25 mg PO BID Qty: 30 0RF (DME) glucose monitor See Rx Instructions .Route .MEDSUPPLY Qty: 1 0RF Rx Instructions: to check glucose daily and as needed (DME) glucose test strips See Rx Instructions .Route .MEDSUPPLY Qty: 100 0RF Rx Instructions: As directed to test glucose daily and as needed up to 4 times daily (DME) lancets See Rx Instructions .Route .MEDSUPPLY Qty: 100 0RF Rx Instructions: As directed to test glucose daily and up to 4 times daily as needed albuterol sulfate 90 mcg/actuation HFA aerosol inhaler 2 inh inhalation Q4-6H PRN (Reason: shortness of breath or wheezing) Qty: 8.5 1RF escitalopram oxalate 10 mg tablet 10 mg PO DAILY Qty: 30 2RF melatonin 5 mg tablet 5 mg PO BEDTIME PRN iron 159 mg (45 mg iron) tablet extended release 159 mg PO DAILY Referrals: Cathy Diaz MD [Primary Care Provider] - Stand Alone Forms: Patient Portal/API
[2024-01-01 11:29] VITALS: BP 101/60; PULSE 77; O2SAT 98
[2024-01-01 11:30] VITALS: PULSE 71; O2SAT 99
[2024-01-01] MEDS: SODIUM CHLORIDE 0.9% 1,000 ML 1000 ML IV (11:54)
[2024-01-01 12:01] LABS: Appearance Urine UA CLEAR; Bilirubin Urine UA 1+ (NEGATIVE); Color Urine UA YELLOW; Glucose Urine UA NEGATIVE (Negative); Ketones Urine UA TRACE (NEGATIVE); Leukocyte Esterase Urine UA NEGATIVE (NEGATIVE); Nitrite Urine UA NEGATIVE (Negative); Occult Blood Urine UA NEGATIVE (Negative); Protein Urine UA NEGATIVE (Negative); Specific Gravity Urine UA 1.025 (1.000-1.035); Urobilinogen Urine UA 0.2 E.U./dL (0.2)
[2024-01-01 12:04] LABS: Add Manual Diff / Slide Review NO; Basophils Absolute Auto 0 /uL (0-100); Basophils Percent Auto 0.2 % (0-2); Eosinophils Absolute Auto 100 /uL (0-450); Eosinophils Percent Auto 0.4 % (2-4); Hematocrit 35.2 % (36-46); Hemoglobin 11.8 g/dL (12.0-16.0); Lymphocytes Absolute Auto 800 /uL (1100-4500); Lymphocytes Percent Auto 6.2 % (25-40); Mean Corpuscular HGB Conc 33.5 % (30-36); Mean Corpuscular Hemoglobin 31.8 PG (26-34); Mean Corpuscular Volume 94.9 fL (80-100); Monocytes Absolute Auto 300 /uL (0-900); Monocytes Percent Auto 2.4 % (3-14); Neutrophils Absolute Auto 12000 /uL (1500-7000); Neutrophils Percent Auto 90.8 % (50-75); Platelet Count 271 X10^3/uL (150-400); Red Cell Distribution Width 12.9 % (11.6-14.8); White Blood Cell Count 13.2 X10^3/uL (4.5-11.0)
[2024-01-01 12:09] LABS: Bacteria Urine Occasional (0-1); Ictotest Urine Negative (Negative); RBC Urine 0-1/HPF (0-5/HPF); Squamous Epithelial Cell Urine 1-5 /HPF (0-5/HPF); Urine Volume 10mL (spun); WBC Urine 0-1/HPF (0-5/HPF)
[2024-01-01 12:10] LABS: Culture Indicated Urine Cult Not Indicated; Mucus Urine 1+ (Negative)
[2024-01-01 12:18] LABS: Alanine Aminotransferase 19 IU/L (<35); Albumin 3.9 g/dL (3.5-5.0); Albumin Globulin Ratio 1.3 (1.0-2.8); Alkaline Phosphatase 104 U/L (38-126); Aspartate Aminotransferase 22 IU/L (14-36); BUN Creatinine Ratio 26.8 (6-22); Bilirubin Total 0.3 mg/dL (0.2-1.3); Blood Urea Nitrogen 15 mg/dL (7-17); Calcium 9.1 mg/dL (8.4-10.2); Carbon Dioxide 23 mmol/L (22-32); Chloride 107 mmol/L (98-107); Estimated Glomerular Filt Rate > 60 mL/min (>60); Globulin 3.1 g/dL (1.7-4.1); Glucose 91 mg/dL (70-100); HEMOLYSIS 16 (0-50); Potassium 4.2 mmol/L (3.4-5.1); Sodium 133 mmol/L (137-145)
[2024-01-01 13:46] VITALS: BP 107/67; PULSE 66; O2SAT 100
== END 2024-01-01 13:47 | disposition home or self-care (01) ==
PROVIDERS: Emergency Provider Emergency Medicine; PCP Family Medicine
DX: O21.2 Late vomiting of pregnancy (principal); O26.893 Other specified pregnancy related conditions, third trimester; Z3A.28 28 weeks gestation of pregnancy; R19.7 Diarrhea, unspecified
CPT/HCPCS: 36415; 80053; 81001; 85025

== ENCOUNTER → 2024-02-26 17:17 | Outpatient (CLI) | payer OTHER, MEDICAID, SELFPAY ==
[2024-02-28 07:51] LABS: Strep Grp B PCR POS for Grp B Strep
== END ==
PROVIDERS: PCP Family Medicine; Visit Provider Family Medicine
DX: Z34.00 Encounter for supervision of normal first pregnancy, unspecified trimester (principal)
CPT/HCPCS: 87653

== ENCOUNTER 2024-03-04 18:32 | Observation (INO) | payer OTHER, MEDICAID, SELFPAY | END 2024-03-04 20:48 | disposition home or self-care (01) | LOC: LABOR 18:36 | PROVIDERS: Admitting Provider Obstetrics & Gynecology; PCP Family Medicine; Referring Provider Obstetrics & Gynecology; Visit Provider Obstetrics & Gynecology | DX: O26.893 Other specified pregnancy related conditions, third trimester (principal); R10.31 Right lower quadrant pain; Z3A.37 37 weeks gestation of pregnancy | CPT/HCPCS: 59025; G0378; G0379 ==

== ENCOUNTER 2024-03-07 05:22 | Inpatient (IN) | payer OTHER, MEDICAID, SELFPAY ==
[2024-03-07 07:02] LABS: Add Manual Diff / Slide Review NO; Basophils Absolute Auto 100 /uL (0-100); Basophils Percent Auto 0.9 % (0-2); Eosinophils Absolute Auto 100 /uL (0-450); Eosinophils Percent Auto 0.7 % (2-4); Hematocrit 34.6 % (36-46); Hemoglobin 11.7 g/dL (12.0-16.0); Lymphocytes Absolute Auto 1800 /uL (1100-4500); Lymphocytes Percent Auto 21.1 % (25-40); Mean Corpuscular HGB Conc 33.7 % (30-36); Monocytes Absolute Auto 700 /uL (0-900); Monocytes Percent Auto 7.8 % (3-14); Neutrophils Absolute Auto 5900 /uL (1500-7000); Neutrophils Percent Auto 69.5 % (50-75); Platelet Count 271 X10^3/uL (150-400); Red Blood Cell Count 3.76 X10^6/uL (4.0-5.2); Red Cell Distribution Width 13.8 % (11.6-14.8); White Blood Cell Count 8.4 X10^3/uL (4.5-11.0)
[2024-03-07 07:21] VITALS: BP 115/72
[2024-03-07] MEDS: AMPICILLIN 2,000 MG in SODIUM CHLORIDE 0.9% 100 ML 200 MG IV ×2 (07:47→21:21)
[2024-03-07] MEDS: LACTATED RINGERS 1,000 ML 100 ML IV ×2 (07:47→15:45)
--- NOTE | 2024-03-07 08:49 | P.HPOB_ITS ---
OB HPI Date/Time Date of admission: 03/07/24 Date Patient Seen: 03/07/24 Time Patient Seen: 08:19 History of Present Condition Chief complaint: SROM : 1 Para: 0 Estimated Date of Delivery: 03/21/24 Estimated Gestational Age (weeks): 38w0d Narrative: Denise Garcia is a 29 year old G1 presenting at 38w0d EGA for a large gush of fluid. On exam she was grossly ruptured. She is suki every 3-7 min. ROm occured at 2am with clear fluid. For about 2 hours she felt minimal contractions but around 4 she started noting contractions getting stronger. has been uncomplicated thus far. History of Present care: good care Preadmission Labs Blood type: A (+) positive -: Antibody screen: negative, GBS status: positive (+ on 02/26/24), HBsAG: negative, HIV: negative and RPR/VDLR: negative -: Chlamydia screen: not detected and Gonorrhea screen: not detected -: Rubella: immune and Varicella: immune HCT: 11.7 HCAB: negative Cell-free DNA: low risk male 1 hr GTT: 78 Evaluation Evaluation Baseline heart rate: 120 Variability: Moderate (11-25) monitor accelerations: Present Monitor Decelerations: Absent Contraction Frequency (minutes): 3 Uterine Contraction Intensity: Strong/Firm Category of Tracing: Reactive Status: Category l Dilation (cm): 2 Effacement (%): 80 Dilation: 1-2 cm Effacement: >/=80% station: -2 Comments: grossly ruptured [facility] Medical History Allergies Headache Fractures (~1999) Frequent UTI (~2010) Cardiac arrhythmia (~2012) Cardiac murmur (~2012) SVT (supraventricular tachycardia) (~2013) Migraine without aura Surgical History Anesthesia History of breast augmentation (~01/2023) Family History Father Hypertension Heart murmur Grandmother Diabetes mellitus Stroke Grandmother Angina at rest Grandfather Parkinsons disease Family/Other Type 1 diabetes Uncle A-fib Mother Skin cancer Social History marital status: unmarried,living together household members: significant other and children (S/O's daughter every other weekend) lives independently: Yes caregiver/support person: No housing: house pets and animals: Yes (cat & dogs, aware of precautions) education level: college (some college) occupational status: employed current occupational exposures/hazards: No special hardeep needs: No travel history: recent (domestic only) seatbelt use: always helmet use: Yes water heater temp set < 120 deg: Yes working smoke detector in home: Yes fire extinguisher in home: Yes carbon monox detector in home: Yes firearms in home: Yes firearms unloaded and locked: Yes do you feel safe at home: Yes Smoking Status: Never smoker second hand exposure: No (s/o chews) alcohol intake: former (0-2/week when not ) substance use type: marijuana (agrees not to use while /) during the past year weight has: remained stable well-balanced diet: rarely or never daily servings fruits/ve-4 (1-2) caffeine: Yes (1 cup coffee or tea in AM) Type(s) of exercise: walking and weight lifting Meds Home Medications and Allergies Home Medications Medication Instructions Recorded Confirmed Type ferrous sulfate, dried 159 mg (45 159 mg PO DAILY 07/22/23 03/06/24 History mg iron) tablet,extended release (iron ER) melatonin 5 mg tablet 5 mg PO BEDTIME PRN 07/22/23 03/06/24 History ondansetron 4 mg disintegrating 4 mg PO Q8H PRN nausea and 08/19/23 03/06/24 Rx tablet vomiting #30 tabs magnesium oxide 400 mg (241.3 mg 400 mg PO DAILY #60 tabs 09/16/23 03/06/24 Rx magnesium) tablet glucose monitor #1 ea 09/24/23 03/06/24 Rx glucose test strips #100 ea 09/24/23 03/06/24 Rx lancets #100 ea 09/24/23 03/06/24 Rx albuterol sulfate 90 mcg/actuation 2 inh inhalation Q4-6H PRN 11/29/23 03/06/24 Rx aerosol inhaler shortness of breath or wheezing #8.5 grams escitalopram oxalate 10 mg tablet 10 mg PO DAILY #30 tabs 12/11/23 03/06/24 Rx cyclobenzaprine 5 mg tablet 5 mg PO TID PRN muscle spasm #30 02/21/24 03/06/24 Rx tabs Allergies Allergy/AdvReac Type Severity Reaction Status Date / Time Yeast AdvReac Abdominal Verified 03/06/24 07:56 Pain vinegar AdvReac Abdominal Uncoded 03/06/24 07:56 Pain Review of Systems Review of Systems Narrative: - JACKSON + contractions + LOF OB Exam Narrative Exam Narrative: GEN: well appearing, breathing through contractions CV: warm and well perfused Resp: breathing comfortbaly on RA Abd: gravid MSK: moving everardo xtremities spontaneously Objective Imaging ultrasound: My impression: cephalic presentation, cardiac motion noted Labs 03/07/24 06:25 Labs: Laboratory Results - last 24 hr 03/07/24 06:25 WBC 8.4 RBC 3.76 L Hgb 11.7 L Hct 34.6 L MCV 92.0 MCH 31.0 MCHC 33.7 RDW 13.8 Plt Count 271 Neut % (Auto) 69.5 Lymph % (Auto) 21.1 L [place] % (Auto) 7.8 Eos % (Auto) 0.7 L Baso % (Auto) 0.9 Neut # (Auto) 5900 Lymph # (Auto) 1800 [place] # (Auto) 700 Eos # (Auto) 100 Baso # (Auto) 100 Assessment and Plan Assessment and Plan Assessment and Plan narrative: 29 yo G1 presenting at 38w0d with SROM at 2am. has been uncomplicated ## SROM at 2am 03/07, clear fluid. - admit to LD - continuous monitoring - TS and CBC - pt requesting epidural now, anesthesia aware - GBS positive, start abx now due to ROM - cephalic by bedside US - Blood type A+, Ab negative - S/o Parvez at bedside - baby Boy Trace ## Depression: well controlled with Lexapro, started at 13 weeks EGA - cont Lexapro 10mg daily ##Asthma: mostly uses during allergy season, infrequent use. - Avoid hemabate if PPH after delivery ## Heart murmur: discovered during work up for palpations previously, no murmurs heard on exams during Time-Based Coding :: [TOTAL MINUTES] spent with patient and on the chart (including review of chart, obtaining history, exam, reviewing outside data, placing orders, documenting exam and treatment plan, and counseling patient) on [DATE].
--- NOTE | 2024-03-07 09:51 | PM.AN.REGBLK ---
Regional Block Pre-procedure Procedure: Continuous Lumbar Epidural for L&D Attending OB provider: Cathy Diaz PMH/ROS narrative: Healthy with a history of seasonal allergies requesting ANTONY for labor pain. PSH/Anesthesia history narrative: EGD with biopsy and breast augmentation- no complications with anesthetics. ASA Class: II Labs: Hct 34.6 % (36-46) L 03/07/24 06:25 Plt Count 271 X10^3/uL (150-400) 03/07/24 06:25 Medications: Current Medications Generic Name Dose Route Start Last Admin Trade Name Freq PRN Reason Stop Dose Admin Calcium Carbonate 1,000 mg 03/07/24 06:13 Calcium Carbonate 500 Mg Tab PO Q2HR PRN Dyspepsia Carboprost Tromethamine 250 mcg 03/07/24 06:13 Carboprost 250 Mcg/Ml Ampul IM Q90M PRN Bleeding Diphenhydramine HCl 25 mg 03/07/24 09:45 Diphenhydramine 50 Mg/Ml Vial IV 03/08/24 09:46 Q3HR PRN PRURITUS Diphenhydramine HCl 25 mg 03/07/24 09:46 Diphenhydramine 50 Mg/Ml Vial IV Q10M PRN Pruritis Ephedrine Sulfate 10 mg 03/07/24 09:46 Ephedrine 50 Mg/Ml Vial IV Q5M PRN Blood pressure decrease more than 20% of baseline. Fentanyl 50 mcg 03/07/24 06:13 Fentanyl 100 Mcg/2 Ml Inj IV Q1H PRN Pain, Moderate (4-6) Lactated Ringer's 1,000 mls @ 100 mls/hr 03/07/24 06:15 03/07/24 07:47 Lactated Ringers IV 03/07/24 16:14 100 mls/hr CONT BRANDO Administration Oxytocin/Lactated Ringer's 30 unit in 500 mls @ 200 mls/hr 03/07/24 06:13 Oxytocin Premix IV CONT PRN Bleeding Protocol Tranexamic Acid 1,000 mg/ 100 mls @ 600 mls/hr 03/07/24 06:13 Sodium Chloride IV NOW PRN Bleeding Oxytocin/Lactated Ringer's 30 unit in 500 mls @ 2 mls/hr 03/07/24 06:15 Oxytocin Premix IV TITRATE BRANDO Protocol 2 MILLIUNIT/MIN Ampicillin Sodium 1,000 mg/ 100 mls @ 200 mls/hr 03/07/24 11:45 Sodium Chloride IV Q4H BRANDO FENT 2MCG/ML BUPIV 0.125% EPI 200 mcg in 100 mls @ 10 mls/hr 03/07/24 10:00 Fentanyl/Bupiv/Ns 2mcg/Ml - 0.125% EPIDURAL CONT BRANDO Lidocaine HCl 20 ml 03/07/24 06:13 Lidocaine 1% 20 Ml INJ INTRA-OP PRN Post Delivery Methylergonovine Maleate 0.2 mg 03/07/24 06:13 Methylergonovine 0.2 Mg Tablet PO Q6HR PRN Heavy Bleeding Methylergonovine Maleate 0.2 mg 03/07/24 06:13 Methylergonovine 0.2 Mg/Ml Vial IM NOW PRN Bleeding Mineral Oil 30 ml 03/07/24 06:13 Mineral Oil 30 Ml Udc TOP PRN PRN Version Misoprostol 800 mcg 03/07/24 06:13 Misoprostol 200 Mcg Tablet MT NOW PRN Bleeding Misoprostol 400 mcg 03/07/24 06:13 Misoprostol 200 Mcg Tablet SL NOW PRN Bleeding Nalbuphine HCl 2.5 mg 03/07/24 09:46 Nalbuphine 20 Mg/Ml Ampul IV Q10M PRN Pruritis Naloxone HCl 0.2 mg 03/07/24 06:13 Naloxone 0.4 Mg/Ml Vial IV Q2MIN PRN Opiate Reversal Naloxone HCl 0.4 mg 03/07/24 09:45 Naloxone 0.4 Mg/Ml Vial IV Q2MIN PRN Opiate Reversal Ondansetron HCl 4 mg 03/07/24 06:13 Ondansetron 4 Mg/2 Ml Inj IV Q4HR PRN Nausea And Vomiting Ondansetron HCl 4 mg 03/07/24 09:45 Ondansetron 4 Mg/2 Ml Inj IV 03/08/24 09:46 Q6HR PRN Nausea Oxytocin 10 unit 03/07/24 06:13 Oxytocin 10 Unit/Ml Vial IM NOW PRN Bleeding Allergies: Allergies Allergy/AdvReac Type Severity Reaction Status Date / Time Yeast AdvReac Abdominal Verified 03/06/24 07:56 Pain vinegar AdvReac Abdominal Uncoded 03/06/24 07:56 Pain Procedure Insertion date: 03/07/24 Insertion time: 09:24 Prep/Local: 1% lidocaine (to interspace and chlorhexadine for skin prep) Interspace: L3/L4 Patient position: sitting Needle: 18 gauge Hustead Loss of resistance with: saline LAZ at (cm): 6 ((6.5)) Catheter placed at SKIN (cm): 12 Catheter in SPACE (cm): 6 ((5.5 - LAZ was at 6.5)) Insertion: No CSF, No Blood, No Paresthesia with insertion, No Paresthesia with injection and No Test dose reaction Initial Medications TEST DOSE time: 09:24 TEST DOSE: 1.5% lidocaine with epinephrine 1:200k (mL): 3 BOLUS DOSE time: 09:35 BOLUS DOSE (mL): 8 BOLUS DOSE med: other (infusate) Infusion INFUSION: 0.125% bupivacaine and with fentanyl 2 mcg/mL Initial rate (mL/hr): 8 Post-procedure Anesthesia date START: 03/07/24 Anesthesia time START: 09:18 Anesthesia date END: 03/07/24 Anesthesia time END: 17:41 Post-procedure Anesthesia Assessment: Yes CV function: HR/BP stable, Yes Resp function: RR/sat/airway adequate, Yes Post-op hydration adequate, Yes Pain control adequate, Yes Nausea & vomiting absent, Yes Temperature > 36 C and Yes Mental status appropriate
[2024-03-07] MEDS: OXYTOCIN PREMIX 30 UNIT/500 ML PLAST..BAG IV (10:54)
[2024-03-07] MEDS: AMPICILLIN 1,000 MG in SODIUM CHLORIDE 0.9% 100 ML 200 MG IV ×2 (11:48→15:45)
--- NOTE | 2024-03-07 15:37 | PM.OBPNLAB ---
Date/Time Date Patient Seen: 03/07/24 Time Patient Seen: 15:17 Pelvic Exam Dilation (cm): 10 Effacement (%): 100 station: -1 Amniotic membrane status: Bulging Comments: forebag noted, ruptured wtih clear fluid at 15:07 Contractions Contractions on admission: regular Monitor mode: External Pitocin rate (mU/min): 6 Contraction frequency (min): 2 Contraction pattern: Regular Contraction intensity: Strong/Firm Status status: Category ll Heart Rate Baseline: 120 Monitor Accelerations: Present Monitor Decelerations: Variable (occassional variables noted with good recovery and good variability between ) Monitor Variability: Moderate Assessment and Plan Plan: continuous present management Comments: 29 yo G1 admitted for SROM, progressing well, now on Pitocin. Epidural working well. 10cm dilated, not feeling any pressure or desire to push yet, FHT reassuring with just occasional variables. will continue to manage expectantly and begin pushing soon. Continue pit at 6mu/min for now
[2024-03-07] MEDS: FENT 2MCG/ML BUPIV 0.125% EPI 200 MCG/100 ML PLAST..BAG 10 MCG EPIDURAL (15:45)
[2024-03-07] MEDS: TRANEXAMIC ACID 1,000 MG in SODIUM CHLORIDE 0.9% 100 ML 200 MG IV (18:17)
[2024-03-07] MEDS: fentaNYL 100 MCG/2 ML INJ 50 MCG IV (18:24)
[2024-03-07] MEDS: ONDANSETRON 4 MG/2 ML INJ IV (18:24)
--- NOTE | 2024-03-07 18:49 | P.PCNOB_ITS ---
Events: Low Fluid Volume in Sac Labor & Delivery Delivery date: 03/07/24 Cervical ripening method: none Induction method: none Delivery augmentation: rupture of membranes (rupture of forebag) and pitocin Delivery monitor: external FHT Route of delivery: L&D Laceration Description: Periurethral - 1st Degree Estimated blood loss (mL): 1,050 Quantitative Blood Loss: 922 Anesthesia Type: Epidural and Local Complications: respiratory distress hemorrhage Narrative: PROCEDURE: 29 yo who presented at 38w0d EGA after SROM at home at 2:00 on 03/07 and was admitted to Labor and Delivery. Per pt report, fluid was clear and contractions started to become regular about 2 hours after rupture. She was managed expectantly and started on GBS ppx. On arrival to the pt was suki painfully. Pain was controlled with an epidural. AFter 2 doses of GBS ppx, pitocin was started due to spacing of the contractions. Max dose achieved was 6mu/min. A variable deceleration was note don monitoring and prompted RN to perform cervical check. THere was noted to cele bulging forebag with no cervix noted. Forebag was ruptured with clear fluid at 15:07. position was -1 and FHT was reassuring so pt was allowed to labor down. FHT showed occassional variable decelerations with good variablity between and accelerations present throughout. Pushing was initiated and good descent was noted with contractions. The patient delivered a viable male infant out of direct OA. A tight nuchal cord was noted and was reduced at the perineum. Time of delivery was 17:41. Infant was placed on maternal abdomen. Eyes were noted to be open and infant appeared alert but no respiratory effort was present and color was poor so the infant was towel stimulated and bulb suctioned for approximately 30 seconds without improvement. The cord was cut and clamped and was transferred to the warmer. Infants eyes were still open but no chest rise was noted despite co ntinued towel stimulation and suction so PPV was initiated. HR was noted to be below 100. Desite PPV, no chest rise or breath sounds were heard so mask was adjusted. Respiratory therapy was contacted at this time as was seo consultant piano and organ refinisher, at 3 min of life. There continued to be no chest rise despite multiple repositionings. A blanket bump was placed below infants shoulders to assist with positioning and no improvement in respiratory was noted. An attempt was made to suction with an 8 [place] tube with minimal output x2. Respiratory therapy arrived at bedside at 17:49 and attempted repositioning with similar outcome and continued poor respiratory effort. The bump was repositioned as well. Fio2 was increased to 30%. Deep suction was performed at 17:51 with a 10 [place] tube and thick mucus was suctioned. Crying was noted, so PPV was resumed. A second attempt at deep suction produced more thick mucous. At 1752 HR increased to 122 and SpO2 increased to 89% on PPV with 30% FiO2. Spo2 increased and infant was weaned quickly to RA by 1753. AT 17:56, Blood sugar was checked and was 97, Temp was 98.3F. O2 monitoring was continued and saturations remained in the high 90s consistently from that point on. At 17:58 HR was 164 and SpO2 was 99% on RA. By 18:04 HR was 176 and Spo2 was 98%. Infant was then returned to maternal abdomen and promptly began rooting and was able to latch easily for breast feeding. APGARS were 3/3/8 at one, five and ten minutes respectively. Due to emergent care of the , placenta delivery was delayed. The placenta delivered with gentle cord traction at 18:05. Pitocin was started. Fundus was firm. With continued massage a large gush of blood was expelled. Pitocin rate was increased to wide open. Bleeding continued so straight cath was performed for bladder decompression at 18:10. Bleeding continued so TXA and cytotec were called for. Rectal cytotec 800mg was administered at 1814 and TXA was given at 1817. Fundus was firm but continued trickle of bleeding was noted. The placenta was inspected and a small area of the placenta was felt to be missing. Due to pt discomfort, 50mcg of Fentanyl was administered at 18:22 then manual sweep was performed with removal of multiple clots. The bleeding then slowed. Pt BP and HR within normal limits throughout. The perineum and vagina were inspected and only a small hemostatic left periurethral laceration was noted, not requiring repair. AT 18:26 Pt noted feeling very tired and had difficulty remaining awake. O2 saturation was >96% but she was started on supplemental O2 due to concern for slowing respiratory rate. She continued to breath regularly but was falling asleep. Vitals remained stable. This eventually passed after 10 minutes, at which point she noted nausea and Zofran was given at 18:44. Sx were attributed to Fentanyl but due to stable vitals and RR with no sign of respiratory depression, Narcan was not felt to be needed. QBL was 922mL but there were multiple laps and once chucks pad that were not included due to amniotic fluid presence, therefore EBL estimated to be 1050mL Infant vitals remained stable throughout maternal PPH course, as did maternal vitals. Antibiotics were ordered following manual sweep for ppx. At this time, mom is awake, alert and breast feeding comfortably. Needle and sponge counts were correct.? The vagina was inspected and no items were left in situ. PREPROCEDURE DIAGNOSIS: Intrauterine at 38wk0d GBS positive RH positive POSTPROCEDURE DIAGNOSIS: Intrauterine at 38w0d, delivered Same as preprocedure respiratory distress, attributed to mucous aspiration and delayed transition Maternal hemorrhage Retained products, s/p manual sweep Plan for aftercare: Routine care
[2024-03-07] MEDS: ACETAMINOPHEN 325 MG TABLET 650 MG PO (21:22)
[2024-03-07] MEDS: IBUPROFEN 600 MG TABLET PO (21:22)
[2024-03-08] MEDS: metroNIDAZOLE 500 MG/100 ML PIGGYBACK 100 MG IV (01:48)
[2024-03-08 02:32] LABS: Add Manual Diff / Slide Review NO; Basophils Absolute Auto 0 /uL (0-100); Basophils Percent Auto 0.2 % (0-2); Eosinophils Absolute Auto 0 /uL (0-450); Eosinophils Percent Auto 0.4 % (2-4); Hematocrit 26.2 % (36-46); Lymphocytes Absolute Auto 1800 /uL (1100-4500); Lymphocytes Percent Auto 15.1 % (25-40); Mean Corpuscular HGB Conc 34.2 % (30-36); Mean Corpuscular Hemoglobin 31.4 PG (26-34); Mean Corpuscular Volume 91.7 fL (80-100); Monocytes Absolute Auto 800 /uL (0-900); Monocytes Percent Auto 7.2 % (3-14); Neutrophils Absolute Auto 9100 /uL (1500-7000); Neutrophils Percent Auto 77.1 % (50-75); Platelet Count 207 X10^3/uL (150-400); Red Blood Cell Count 2.85 X10^6/uL (4.0-5.2); Red Cell Distribution Width 13.7 % (11.6-14.8); White Blood Cell Count 11.7 X10^3/uL (4.5-11.0)
[2024-03-08] MEDS: IBUPROFEN 600 MG TABLET PO ×3 (03:36→16:40)
[2024-03-08] MEDS: ACETAMINOPHEN 325 MG TABLET 650 MG PO ×3 (03:36→16:40)
[2024-03-08] MEDS: ESCITALOPRAM 10 MG TABLET PO (10:28)
--- NOTE | 2024-03-08 12:19 | P.DS_ITS ---
Discharge Providers Provider Date of admission: 03/07/24 05:22 Discharge Date: 03/08/24 Primary care physician: Cathy Diaz MD Consults: 03/07/24 06:13 Consult to Anesthesiology Urgent Comment: Consulting Provider: Anesthesiologist Reason for consultation: Epidural 03/08/24 19:05 Consult to Light Equipment Operator Routine Comment: Discharge provider: Cathy Diaz MD Summary Hospital Course Date Patient Seen: 03/08/24 Time Patient Seen: 12:20 Hospital Course: 29 yo who presented at 38w0d EGA after SROM at home at 2:00 on 03/07 and was admitted to Labor and Delivery. Per pt report, fluid was clear and contractions started to become regular about 2 hours after rupture. She was managed expectantly and started on GBS ppx. On arrival to the pt was suki painfully. Pain was controlled with an epidural. AFter 2 doses of GBS ppx, pitocin was started due to spacing of the contractions. Max dose achieved was 6mu/min. A variable deceleration was note don monitoring and prompted RN to perform cervical check. THere was noted to cele bulging forebag with no cervix noted. Forebag was ruptured with clear fluid at 15:07. position was -1 and FHT was reassuring so pt was allowed to labor down. FHT showed occassional variable decelerations with good variability between and accelerations present throughout. Pushing was initiated and good descent was noted with contractions. The patient delivered a viable male infant out of direct OA. A tight nuchal cord was noted and was reduced at the perineum. Time of delivery was 17:41. was placed on maternal abdomen. Eyes were noted to be open and appeared alert but no respiratory effort was present and color was poor so the infant was towel stimulated and bulb suctioned for approximately 30 seconds without improvement. The cord was cut and clamped and was transferred to the warmer. Infants eyes were still open but no chest rise was noted despite continued towel stimulation and suction so PPV was initiated. HR was noted to be below 100. Desite PPV, no chest rise or breath sounds were heard so mask was adjusted. Respiratory therapy was contacted at this time as was marketing operations specialist critical care rn, at 3 min of life. There continued to be no chest rise despite multiple repositionings. A blanket bump was placed below infants shoulders to assist with positioning and no improvement in respiratory was noted. An attempt was made to suction with an 8 [place] tube with minimal output x2. Respiratory therapy arrived at bedside at 17:49 and attempted repositioning with similar outcome and continued poor respiratory effort. The bump was repositioned as well. Fio2 was increased to 30%. Deep suction was performed at 17:51 with a 10 [place] tube and thick mucus was suctioned. Crying was noted, so PPV was resumed. A second attempt at deep suction produced more thick mucous. At 1752 HR increased to 122 and SpO2 increased to 89% on PPV with 30% FiO2. Spo2 increased and was weaned quickly to RA by 1753. AT 17:56, Blood sugar was checked and was 97, Temp was 98.3F. O2 monitoring was continued and saturations remained in the high 90s consistently from that point on. At 17:58 HR was 164 and SpO2 was 99% on RA. By 18:04 HR was 176 and Spo2 was 98%. was then returned to maternal abdomen and promptly began rooting and was able to latch easily for breast feeding. APGARS were 3/3/8 at one, five and ten minutes respectively. Due to emergent care of the , placenta delivery was delayed. The placenta delivered with gentle cord traction at 18:05. Pitocin was started. Fundus was firm. With continued massage a large gush of blood was expelled. Pitocin rate was increased to wide open. Bleeding continued so straight cath was performed for bladder decompression at 18:10. Bleeding continued so TXA and cytotec were called for. Rectal cytotec 800mg was administered at 1814 and TXA was given at 1817. Fundus was firm but continued trickle of bleeding was noted. The placenta was inspected and a small area of the placenta was felt to be missing. Due to pt discomfort, 50mcg of Fentanyl was administered at 18:22 then manual sweep was performed with removal of multiple clots. The bleeding then slowed. Pt BP and HR within normal limits throughout. The perineum and vagina were inspected and only a small hemostatic left periurethral laceration was noted, not requiring repair. AT 18:26 Pt noted feeling very tired and had difficulty remaining awake. O2 saturation was >96% but she was started on supplemental O2 due to concern for slowing respiratory rate. She continued to breath regularly but was falling asleep. Vitals remained stable. This eventually passed after 10 minutes, at which point she noted nausea and Zofran was given at 18:44. Sx were attributed to Fentanyl but due to stable vitals and RR with no sign of respiratory depression, Narcan was not felt to be needed. She was given Metronizdazole and Ampicillin for ppx after manual sweep QBL was 922mL but there were multiple laps and once chucks pad that were not included due to amniotic fluid presence, therefore EBL estimated to be 1050mL vitals remained stable throughout maternal PPH course, as did maternal vitals. Antibiotics were ordered following manual sweep for ppx. At this time, mom is awake, alert and breast feeding comfortably. Postaprtum course was uncomplicated. she recovered well and has had approrpaite bleeding. She is breast feeding without difficulty. She has not had any ligtheadedness or dizziness but Hgb did drop from 11.7 to 9 so IV Fe infusion was given x1 without complication. Vitals have remained stable. Pain has been controlled wtih Po medications. Peripartum Data Infant Delivery Method: Natural Vaginal Laceration Description: Periurethral - 1st Degree (hemostatic, not repaired) Procedures: spontaneous vaginal delivery complications: other ( hemorrhage ) Status at Discharge Cognitive/behavioral status at discharge: oriented Time Spent with Patient Time attestation: Total time spent providing and/or coordinating discharge services: Time spent: Greater than 30 minutes Objective Labs 03/08/24 01:50 Labs: Laboratory Results - last 24 hr 03/08/24 01:50 WBC 11.7 H RBC 2.85 L Hgb 9.0 L Hct 26.2 L MCV 91.7 MCH 31.4 MCHC 34.2 RDW 13.7 Plt Count 207 Neut % (Auto) 77.1 H Lymph % (Auto) 15.1 L [place] % (Auto) 7.2 Eos % (Auto) 0.4 L Baso % (Auto) 0.2 Neut # (Auto) 9100 H Lymph # (Auto) 1800 [place] # (Auto) 800 Eos # (Auto) 0 Baso # (Auto) 0 Exam Narrative Exam Narrative: GEN: Healthy appearing, well-developed, NAD. PSYCH: Good Judgment. AOx3. Normal memory, mood, and affect HEENT: -Head: NC/AT -Eyes: No discharge or redness CV: warm and well perfused LUNGS: breathing comfortably on RA Abd: fundus firm SKIN: Warm, well perfused. No skin rashes or abnormal lesions MSK: No deformities NEURO: No focal deficits Discharge Plan Discharge Plan Patient Disposition: Home Discharge orders & Medications Prescriptions: Continued ondansetron 4 mg tablet,disintegrating 4 mg PO Q8H PRN (Reason: nausea and vomiting) Qty: 30 0RF magnesium oxide 400 mg (241.3 mg magnesium) tablet 400 mg PO DAILY Qty: 60 0RF albuterol sulfate 90 mcg/actuation HFA aerosol inhaler 2 inh inhalation Q4-6H PRN (Reason: shortness of breath or wheezing) Qty: 8.5 1RF escitalopram oxalate 10 mg tablet 10 mg PO DAILY Qty: 30 2RF melatonin 5 mg tablet 5 mg PO BEDTIME PRN iron 159 mg (45 mg iron) tablet extended release 159 mg PO DAILY Discontinued cyclobenzaprine 5 mg tablet 5 mg PO TID PRN (Reason: muscle spasm) Qty: 30 0RF No Action (DME) glucose monitor See Rx Instructions .Route .MEDSUPPLY Qty: 1 0RF Rx Instructions: to check glucose daily and as needed (DME) glucose test strips See Rx Instructions .Route .MEDSUPPLY Qty: 100 0RF Rx Instructions: As directed to test glucose daily and as needed up to 4 times daily (DME) lancets See Rx Instructions .Route .MEDSUPPLY Qty: 100 0RF Rx Instructions: As directed to test glucose daily and up to 4 times daily as needed Follow up/Referrals: Cathy Diaz MD [Primary Care Provider] - (please call Dr. Diaz's office to schedule a six week appointment. ) Visit Report/Discharge Packet Instructions: DI for Hemorrhage, DI for Depression Stand Alone Forms: Discharge: Care, Patient Portal/API, Stroke Signs & Symptoms Discharge Data Primary Care Provider: Cathy Diaz Attending Provider: Casi Bridges Admit Date/Time: 03/07/24 05:22 Discharges patient from system. Discharge Date/Time: 03/08/24 17:15
[2024-03-08] MEDS: IRON SUCROSE 300 MG in SODIUM CHLORIDE 0.9% 250 ML 176.667 MG IV (12:56)
== END 2024-03-08 17:15 | disposition home or self-care (01) | DRG 560 ==
PROVIDERS: Admitting Provider Obstetrics & Gynecology; PCP Family Medicine; Referring Provider Obstetrics & Gynecology; Visit Provider Obstetrics & Gynecology
DX: O42.02 Full-term premature rupture of membranes, onset of labor within 24 hours of rupture (principal); O99.824 Streptococcus B carrier state complicating childbirth; O76 Abnormality in fetal heart rate and rhythm complicating labor and delivery; O72.0 Third-stage hemorrhage; Z37.0 Single live birth; Z3A.38 38 weeks gestation of pregnancy
CPT/HCPCS: 36415; 59050; 76815; 85025; 86850; 86900; 86901; G0378; G0379; J0290; J1756; J2405; J2590; J3010